=== PATIENT | male | born 1990 | race Caucasian/White ===

== ENCOUNTER 2020-01-06 03:05 | Emergency (ER) | payer SELFPAY ==
[~2020-01-06] VITALS: Ht 188 cm; Wt 102.6 kg
[2020-01-06 03:12] VITALS: BP 145/89
[2020-01-06] MEDS ORDERED: IBUPROFEN 800 MG TABLET ONE (03:24)
[2020-01-06] MEDS ORDERED: IBUPROFEN 800 MG TABLET PO ONE (03:30)
--- NOTE | 2020-01-06 03:34 | NUR ---
Pt presents with R upper dental pain with swelling into face and under R eye. Redness noted. Pt medicated per DEC. Call light in reach.
== END 2020-01-06 03:52 | disposition home or self-care (01) ==
LOC: ED 03:30
DX: K04.7 Periapical abscess without sinus (principal); K02.9 Dental caries, unspecified
CPT/HCPCS: 41800; 99284